=== PATIENT | female | born 1935 | race Caucasian/White ===

== ENCOUNTER 2017-05-25 18:40 | Emergency (ER) | payer MEDICARE, OTHER ==
[2017-05-25] MEDS ORDERED: ACETAMINOPHEN 325 MG TABLET PO ONE (19:13)
--- NOTE | 2017-05-25 19:15 | RADIOLOGY REPORT (SQ) ---
EXAM DESCRIPTION: ANKLE RIGHT COMPLETE COMPLETED DATE/TIME: 05/25/2017 7:04 pm REASON FOR STUDY: bed 4 s/p fall with +swelling and tenderness COMPARISON: None. NUMBER OF VIEWS: Three views. TECHNIQUE: AP, lateral, and oblique radiographic images acquired of the right ankle. LIMITATIONS: None. FINDINGS: MINERALIZATION: Osteopenia. BONES: There is a mildly displaced oblique fracture through the distal fibula without mortise widenin g. Background of degenerative changes and sequela of remote trauma. JOINTS: No effusions. SOFT TISSUES: No soft tissue swelling. No foreign body. OTHER: No other significant finding. IMPRESSION: Mildly displaced oblique fracture through the distal fibula without demonstrated mortise widening on the images provided. TECHNICAL DOCUMENTATION: JOB ID: [id number] Other Machine- All Rights Reserved
--- NOTE | 2017-05-25 19:16 | ER Document Report ---
ED Fall - General Chief Complaint: Ankle Pain Stated Complaint: FALL Time Seen by Provider: 05/25/17 18:51 Notes: Patient is an 81-year-old female who presents after a mechanical fall in which she twisted her right ankle. Patient states that she tripped over her own feet denies any injury to any other location other than her right ankle. She states she believes she twisted ankle when she fell. She notes a dull, constant throbbing pain to the right ankle since the time of injury. She has not been able to bear weight due to the pain. Denies any history of similar injury in the past. She has not tried any to improve the pain. She does arrive by EMS. She is very clear to state that she did not hit her head or neck, denies any hip or knee pain, denies any upper extremity chest wall or abdominal injuries. TRAVEL OUTSIDE OF THE [place] IN LAST 30 DAYS: No - Related data Allergies/Adverse Reactions: No Known Allergies Allergy (Verified 03/24/15 16:28) Past Medical History - General Information source: Patient - Social History Smoking Status: Never Smoker Frequency of alcohol use: None Drug Abuse: None Lives with: Family Family History: Reviewed & Not Pertinent - Past Medical History Cardiac Medical History: Reports: Hx Atrial Fibrillation, Hx Hypertension Pulmonary Medical History: Denies: Hx Tuberculosis Neurological Medical History: Reports: Hx Seizures Endocrine Medical History: Reports: Hx Hypothyroidism GI Medical History: Reports: Hx Gastroesophageal Reflux Disease Musculoskeltal Medical History: Reports Hx Arthritis Past Surgical History: Reports: Hx Cardiac Surgery - ablation, Hx Cholecystectomy, Hx Hysterectomy, Hx Pacemaker - Immunizations Hx Diphtheria, Pertussis, Tetanus Vaccination: Yes Hx Pneumococcal Vaccination: 04/29/06 Review of Systems - Review of Systems Notes: Constitutional: Negative for fever. Eyes: Negative for visual changes. ENT: Negative for facial injury Cardiovascular: Negative for chest injury. Respiratory: Negative for shortness of breath. Gastrointestinal: Negative for abdominal injury. Genitourinary: Negative for genital injury Musculoskeletal: Positive for right ankle injury Skin: Negative for laceration/abrasions. Neurological: Negative for head injury. Physical Exam - Vital signs Vitals: Temp Pulse Resp BP Pulse Ox 97.7 F 69 18 139/73 H 100 05/25/17 19:10 05/25/17 19:10 05/25/17 19:10 05/25/17 19:10 05/25/17 19:10 Interpretation: Normal Notes: PHYSICAL EXAMINATION: GENERAL: Well-appearing, no acute distress. HEAD: Atraumatic, normocephalic. EYES: Pupils equal round and reactive to light, extraocular movements intact, sclera anicteric, conjunctiva are normal. ENT: nares patent, no oral pharyngeal trauma. No hemotympanum, no Corral's sign , no raccoon eyes. NECK: No midline cervical spine tenderness. Patient able to move their head to 45 bilaterally without any discomfort. LUNGS: Breath sounds clear to auscultation bilaterally and equal. No wheezes rales or rhonchi. HEART: Regular rate and rhythm without murmurs. 2+ DP pulses bilaterally CHEST WALL: No ecchymosis over the chest wall. ABDOMEN: Soft, nontender, normoactive bowel sounds. No guarding, no rebound. No abdominal bruising EXTREMITIES: Swelling and bruising of the right ankle most prominent over the lateral malleolus, otherwise normal range of motion, no pitting or edema. No long bone deformities. BACK: No midline spinal tenderness, step-offs, or deformities. NEUROLOGICAL: Face symmetric. Tongue protrudes midline. Extraocular motions intact. Pupils are 2 mm and equally reactive. Normal speech. 5 out of 5 strength in both the distal and proximal upper and lower extremities bilaterally. Sensation is grossly intact throughout. PSYCH: Normal mood, normal affect. SKIN: Warm, Dry, normal turgor, no rashes or lesions noted. Course - Re-evaluation Re-evalutation: 05/25/17 19:13 Patient presents with a isolated right ankle injury after mechanical fall. She did not strike her head or neck. She denies any injury or complaints any other area of her body other than her right ankle. Physical examination is otherwise unremarkable. The right ankle x-ray does show the patient has a distal fibular fracture without any additional fractures noted. She has been placed in a posterior short leg splint for immobilization, provided crutches and made nonweightbearing. Tylenol has been provided for pain with appropriate control of her discomfort. Orthopedic surgical follow-up has been instructed. At this time will discharge with return precautions and follow-up recommendations. Verbal discharge instructions given a the bedside and opportunity for questions given. Medication warnings reviewed. Patient is in agreement with this plan and has verbalized understanding of return precautions and the need for primary care follow-up in the next 24-72 hours. - Vital Signs Vital signs: Temp Pulse Resp BP Pulse Ox 97.7 F 69 18 139/73 H 100 05/25/17 19:10 05/25/17 19:10 05/25/17 19:10 05/25/17 19:10 05/25/17 19:10 - Diagnostic Test Radiology reviewed: Image reviewed, Reports reviewed Radiology results interpreted by me: 05/25/17 19:14 Right ankle x-ray: Distal right fibular fracture Procedures - Immobilization Right Ankle Pre-Proc Neuro Vasc Exam: Normal Immobilizer type: Short Leg Posterior Performed by: Provider assisted Post-Proc Neuro Vasc Exam: Normal Alignment checked and good: Yes Discharge - Discharge Clinical Impression: Fracture of distal end of fibula Qualifiers: Encounter type: initial encounter Fracture type: closed Fracture morphology: unspecified fracture morphology Laterality: right Qualified Code(s): S82.831A - Other fracture of upper and lower end of right fibula, initial encounter for closed fracture Fall Qualifiers: Encounter type: initial encounter Qualified Code(s): W19.XXXA - Unspecified fall, initial encounter Condition: Good Disposition: HOME, SELF-CARE Additional Instructions: Your x-ray does show a distal fibular fracture. You have been placed in a splint to keep this joint immobilized. Please take Tylenol 1000 mg every 6 hours as needed for pain. Keep the area elevated and apply ice regularly. Please follow-up with orthopedic surgery within the next 1 week. Although these types of bone breaks do not usually require surgery, it is still important have an evaluation by an orthopedic surgeon to make this determination officially. Return if you have worsening pain, weakness, numbness , or any other symptoms that are worrisome to you. Referrals: NIYA ELIAS MD [ACTIVE STAFF] - Follow up in 1 week
[2017-05-25 21:06] VITALS: BP 135/59
== END 2017-05-25 21:06 | disposition home or self-care (01) ==
LOC: ER 18:40
PROC: 2W3QX1Z Immobilization of Right Lower Leg using Splint (ICD-10-PCS; principal; 2017-05-25)
DX: S82.831A Other fracture of upper and lower end of right fibula, initial encounter for closed fracture (principal); X50.0XXA Overexertion from strenuous movement or load, initial encounter; W18.30XA Fall on same level, unspecified, initial encounter; I48.91 Unspecified atrial fibrillation; I10 Essential (primary) hypertension; Z90.49 Acquired absence of other specified parts of digestive tract; Z90.710 Acquired absence of both cervix and uterus
CPT/HCPCS: 99283; 73610; 29515; A9270